=== PATIENT | female | born 1945 | race Caucasian/White ===

== ENCOUNTER 2017-09-28 18:55 | Inpatient (IN) | payer MEDICARE, OTHER ==
[2017-09-28 20:10] LABS: #Eosinphils 0.1 thou/uL (0.0-0.7); #Lymphocytes 1.7 thou/uL (1.20-3.40); #Monocytes 0.5 thou/uL (0.11-0.59); #Neutrophils 8.4 thou/uL (1.40-6.50); %Basophils 0.3 % (0.0-1.0); %Lymphocytes 15.8 % (21.0-51.0); %Monocytes 4.7 % (0.0-10.0); %Neutrophils 78.3 % (42.0-75.0); Hemoglobin 10.5 g/dL (12.0-16.0); Mean Corpuscular HGB CONC 32.2 g/dL (32.0-36.0); Mean Corpuscular Volume 90.1 fl (81.0-99.0); Mean Platelet Volume 10.2 fL (7.4-10.4); Platelet Count 228 thou/uL (130-400); RBC Distribution Width 14.4 % (11.5-14.5); Red Blood Cell (RBC) Count 3.62 mill/uL (4.20-5.40); White Blood Cell (WBC) Count 10.7 thou/uL (4.8-10.8)
[2017-09-28 20:15] LABS: INR-International Normal Ratio 1.1; PTT 26.9 SEC (22.9-36.1); Prothrombin Time 14.4 SEC (12.0-14.7)
[2017-09-28 20:29] LABS: ALT (SGPT) 10 U/L (8-55); AST (SGOT) 12 U/L (5-34); Albumin 3.7 g/dL (3.4-4.8); Alkaline Phosphatase 75 U/L (40-150); Anion Gap 12 mmol/L (10-20); BUN (Urea Nitrogen) 26 mg/dL (9.8-20.1); Bilirubin, Total 0.2 mg/dL (0.2-1.2); Calc. Creatinine Clearance 0 mL/min (70-130); Calcium 9.1 mg/dL (7.8-10.44); Carbon Dioxide 28 mmol/L (23-31); Chloride 103 mmol/L (98-107); Estimated GFR-MDRD 70; Globulin 3.2 g/dL (2.4-3.5); Glucose 167 mg/dL (80-115); Iron 32 ug/dL (50-170); Iron Binding Capacity, Total 361 mcg/dL (265-497); Potassium 3.9 mmol/L (3.5-5.1); Protein, Total 6.9 g/dL (6.0-8.3); Sodium 139 mmol/L (136-145)
--- NOTE | 2017-09-28 21:04 | CT ---
ABDOMEN AND PELVIC CT WITH CONTRAST 09/28/17 INDICATION: Lower GI bleed, rectal bleeding with dizziness and syncope. FINDINGS: No acute abnormalities of the lung bases are visualized. The solid abdominal organs reveal no acute a bnormalities. There is mild vascular calcification. No free air or ascites. The bowel is incompletely assessed without enteric contrast administration. There are colonic diverticula. There is linear hyp erdensity of the ventral abdominal wall indicating prior herniorrhaphy. Correlate with surgical histo ry. No acute osseous pathology. There is a small hiatal hernia. IMPRESSION: 1. Incomplete assessment of the bowel without enteric contrast. 2. Evidence of prior herniorrhaphy. 3. No free air or ascites. 4. Colonic diverticulosis. There is slight wall prominence of the underdistended sigmoid colon w ith a subtle degree of pericolonic haziness, incompletely assessed. Consider followup with endoscopic evaluation for more definitive evaluation. POS: [facility]
[2017-09-28] MEDS ORDERED: GoLYTELY 4,000 ml Bottle PO SCH ×2 (23:15→23:24)
[2017-09-28 23:23] LABS: Hemoglobin 9.8 g/dL (12.0-16.0)
[2017-09-28] MEDS ORDERED: Ondansetron ODT 4 MG TAB SL PRN (23:23)
[2017-09-28] MEDS ORDERED: Acetaminophen 325 MG TAB PO PRN ×2 (23:23→23:24)
[2017-09-28] MEDS ORDERED: Sodium Chloride 0.9% 1,000 ML IV SCH (23:23)
[2017-09-28] MEDS ORDERED: Ondansetron HCl/PF 4 MG/2 ML Vial IVP PRN (23:23)
[2017-09-28 23:45] VITALS: BMI 45.4
--- NOTE | 2017-09-29 00:04 | CON ---
DATE OF CONSULTATION: 09/28/2017 HISTORY OF PRESENT ILLNESS: Patient is a 72-year-old female who was in her normal state of health until 4:00 this morning, when she developed bright red rectal bleeding, over the last 18-hour s or so, has passed 4 large bloody bowel movements. She had a similar episode several months ago and was treated with transfusion and this spontaneously resolved. Approximately a year ago, she had GI evaluation for iron deficiency anemia. This consisted of an upper and lower endoscopy. Reportedly, the only abnormalities were diverticula. She is not absolutely sure where these diverticula were, bu t feels like mostly that they were in the sigmoid colon. She denies any abdominal pain, any vomiting . She has had some nausea when she has felt lightheaded. PAST MEDICAL HISTORY: Includes hypertension. PAST SURGICAL HISTORY: Includes herniorrhaphy, hysterectomy, and oophorectomy. ALLERGIES: No known allergies. SOCIAL HISTORY: She does not smoke or drink. FAMILY HISTORY: Negative for GI or liver disease. REVIEW OF SYSTEMS: Constitutional: No fever or chills. No weight loss. Eyes: No blurred vision, double vision. ENT: No sore throat or earaches. Cardiovascular: No chest pain or palpitations. P ulmonary: No shortness of breath, cough, or wheezing. Gastrointestinal: See above. : No hematu zack or dysuria. Musculoskeletal: No joint pain or muscle weakness. Skin: No rashes. Neurologic: No numbness or seizure activity. PHYSICAL EXAMINATION: VITAL SIGNS: Stable. She is afebrile. HEENT: Unremarkable. NECK: Supple. CHEST: Clear. CARDIOVASCULAR: Regular rate and rhythm. ABDOMEN: Soft, nontender, without organomegaly or masses. Bowel sounds are present. RECTAL: Deferred. EXTREMITIES: Normal. NEUROLOGIC: Nonfocal. LABORATORY DATA: Shows a hemoglobin 10.5, hematocrit 32.6. PT is 14.4 with an INR of 1.1. Chemistr ies show BUN of 26, creatinine 0.81, glucose 167. Iron 32, TIBC 361, ferritin 37. Abdominal and pel mahesh CT showed previous herniorrhaphy, colonic diverticulosis. There is some slight wall prominence o f the underdistended sigmoid colon with a subtle degree of pericolonic haziness. This is incompletel y assessed. ASSESSMENT: 1. Lower gastrointestinal bleed - suspect diverticular hemorrhage. 2. Anemia secondary to gastrointestinal blood loss. 3. Prior evaluation for iron deficiency anemia with no etiology found. 4. Colonic diverticulosis. RECOMMENDATIONS: 1. As urgent GI bleeding scan. 2. Serial H&H. 3. Colonoscopy in the a.m.
[2017-09-29] MEDS: D5 1/2 NS w/20 mEq KCL 1,000 ML IV SCH ×3 (00:17→14:51)
--- NOTE | 2017-09-29 03:37 | HP-2 ---
DATE OF SERVICE: 09/28/2017 TIME: 2200 hours. CODE STATUS: FULL CODE. PRIMARY CARE PHYSICIAN: Sonia castro. ATTENDING: Dr. Silas Daniels. RESIDENT: Dr. Mario Geiger. HISTORIAN: Patient CHIEF COMPLAINT: Rectal bleeding. HISTORY OF PRESENT ILLNESS: Sherie Lopez is a 72-year-old female with past medical history of di verticulosis and anemia, who presents to ED after 4 episodes of painless bright red bleeding per rect um that started today at 4:00 a.m. this morning. Since bleeding she has also progressively had worse maxwell dyspnea with exertion, fatigue and dizziness. The four episodes of bright red blood per rectum w ere painless and were more gross blood. There was no stool. She had a hemoglobin of 6.[address] going to the ED for worsening fatigue and shortness of breath with exertion and had an EGD and co lonoscopy done at that time, which found to have a hiatal hernia and diverticulosis, but no obvious b leeding. In May, she had a period of dyspnea, which resolved after getting 2 liters of normal sa line in the clinic. In July, she had a followup visit with a hemoglobin check and at that time, the hemoglobin was 12.5 leading up to today, she has been feeling well. No symptoms. There is no re cent illnesses and no major changes in bowel movements prior to today. In the ER, the patient receiv ed 1 liter of normal saline. PAST MEDICAL HISTORY: 1. Diverticulosis. 2. Anemia. PAST SURGICAL HISTORY: 1. Ovarian wedge resection. 2. Hysterectomy. 3. section x2. 4. Hernia repair with mesh. ALLERGIES: No known drug allergies. MEDICATIONS 1. Xyzal 5 mg p.o. daily. 2. Nexium 40 mg p.o. daily. 3. Ferrous sulfate 300 mg p.o. daily. 4. Triamterene/hydrochlorothiazide 50/25 mg p.o. daily. SOCIAL HISTORY: The patient denies tobacco, drugs, or alcohol use. REVIEW OF SYSTEMS: Twelve point review of systems including general, eyes, ENT, respiratory, CV, GI, , skin, musculoskeletal, neuro, and psych were reviewed and were negative, unless otherwise stated in the HPI. Otherwise included seasonal allergies and constipation. PHYSICAL EXAMINATION: VITAL SIGNS: Blood pressure 103/83, pulse 100, respiratory rate 24, temperature 98.2, pulse ox 92% o n room air. Current weight 120 kilograms. GENERAL: Patient is alert and oriented x4, no acute distress, obese, appropriately interactive. HEENT: Pupils are equal, round, reactive to light and accommodation. Extraocular muscles intact. C onjunctivae within normal limits. ENT: Tympanic membranes pearly penaloza without bulging or erythema. Nasal mucosa and oropharynx within normal limits. NECK: Supple, without lymphadenopathy or thyromegaly. CARDIOVASCULAR: Regular rate and rhythm. No murmurs or gallops. RESPIRATORY: Normal effort, no retractions. LUNGS: Clear to auscultation bilaterally. SKIN: Warm and dry without cyanosis or lesions. ABDOMEN: Soft, nontender. Bowel sounds normoactive. No masses or distention. EXTREMITIES: No clubbing, cyanosis, or pitting edema. MUSCULOSKELETAL: Structure and tone within normal limits. Full range of motion. NEUROLOGIC: No focal deficits. Sensation within normal limits. PSYCHIATRIC: Appropriate. LABORATORY DATA: White blood cell count 10.7, hemoglobin of 10.5, hematocrit 32.6, MCV of 90, platel ets 228. Sodium 139, potassium 3.9, chloride 103, carbon dioxide 28, BUN 26, creatinine 0.81, glucos e 167, calcium 9.1, total protein 6.9, albumin 3.7, total bilirubin 0.2, AST 12, ALT 10, alkaline gregory sphatase 75. Ferritin 37.73, TIBC is 361. Iron 32. FOBT positive. INR 1.1, PT 14.4, PTT 26.9. IMAGING: CT of the abdomen showed colonic diverticulosis, no free air slight wall prominence of unde r distended sigmoid colon with subtle degree of pericolonic haziness. ASSESSMENT AND PLAN: A 72-year-old female with past medical history of diverticulosis and anemia who presents after 4 episodes of bright red blood per rectum today. 1. Acute gastrointestinal bleed. Admit to medical, Dr. Penaloza with Gastroenterology consulted in the ED. FOBT positive. We will order nuclear medicine abdominal bleeding scan, type and cross. The pat ient start bowel prep for endoscopy in the morning and start IV fluids D5 half normal saline with 20 KCl at 160 mL an hour. 2. Anemia - normocytic. Supplement with iron. Would expect microcytic anemia with history of GI bl eeding. Check a vitamin B12 and folate. Iron studies were done in the ER. 3. Diet n.p.o. 4. Activity: Ambulate with assist. 5. Code status: FULL CODE. DISPOSITION AND LENGTH OF HOSPITAL STAY: 2 days. Symptomatic medication will be provided. History and physical exam as well as management discussed with Dr. Daniels.
[2017-09-29 05:59] LABS: Band 1 % (5-11); Eosinophils 1 % (0-10); Hemoglobin 8.5 g/dL (12.0-16.0); Lymphocytes 21 % (21-51); MDiff Complete? YES; Mean Corpuscular HGB CONC 32.6 g/dL (32.0-36.0); Mean Corpuscular Hemoglobin 29.4 pg (27.0-31.0); Mean Corpuscular Volume 90.1 fl (81.0-99.0); Mean Platelet Volume 10.2 fL (7.4-10.4); Monocytes 5 % (0-10); Neutrophil 72 % (42-75); Platelet Count 183 thou/uL (130-400); RBC Distribution Width 14.3 % (11.5-14.5)
--- NOTE | 2017-09-29 06:08 | PDOC.FM ---
- Subjective Subjective: Pt reports doing better this morning. Denies any acute events overnight. Reports no more acute bright red blood. Says she has noticed some older blood while she is drinking golytely. Pt denies any increased weakness. Denies any dizzines, lightheadness. Denies any SOB getting up and walking. Denies any chest pain or heart palpitations. Denies any nausea/vomiting. Denies any abdominal pain. Denies any fever or chills. Awaiting to go for colonoscopy at this time. - Objective MAR Reviewed: Yes Vital Signs & Weight: Vital Signs (12 hours) Temp Pulse Resp BP Pulse Ox 09/29/17 04:00 97.4 F L 95 16 110/57 L 95 09/29/17 00:43 98.1 F 95 20 95 09/28/17 23:42 98.1 F 95 20 147/84 H 94 L Weight Weight 120.2 kg Result Diagrams: 09/29/17 04:46 09/29/17 04:46 Radiology Reviewed by me: Yes Radiology: CT Ab/Pelvis: Incomplete assessment of the bowel w/o enteric contrast. Evidence of prior herniorrhaphy. No free air or ascites. Colonic diverticulosis. there is slight wall prominence of the underdistended sigmoid colon with a subtle degree of pericolonic haziness, incompletely assessed. Consider follow up w/ endoscopic evaluation GI bleed nuclear scan pending. <Marshal Sladana - Last Filed: 09/29/17 07:16> - Objective Vital Signs & Weight: Vital Signs (12 hours) Temp Pulse Resp BP Pulse Ox 09/29/17 07:46 97.8 F 96 16 137/74 95 09/29/17 04:00 97.4 F L 95 16 110/57 L 95 09/29/17 00:43 98.1 F 95 20 95 09/28/17 23:42 98.1 F 95 20 147/84 H 94 L Weight Weight 264 lb 15.93 oz Result Diagrams: 09/29/17 04:46 09/29/17 04:46 <Silas Daniels - Last Filed: 09/29/17 09:46> Phys Exam - Physical Examination Constitutional: NAD HEENT: PERRLA, moist MMs Neck: no nodes, supple, full ROM Respiratory: no wheezing, no rales, no rhonchi, clear to auscultation bilateral Cardiovascular: RRR, no significant murmur, no rub Gastrointestinal: soft, non-tender, no distention, positive bowel sounds Musculoskeletal: no edema, pulses present Neurological: non-focal, normal sensation, moves all 4 limbs Lymphatic: no nodes Psychiatric: normal affect Skin: no rash, normal turgor <Marshal Saldana - Last Filed: 09/29/17 07:16> Dx/Plan (1) Acute GI bleeding Code(s): K92.2 - GASTROINTESTINAL HEMORRHAGE, UNSPECIFIED Status: Acute (2) Diverticulosis Code(s): K57.90 - DVRTCLOS OF INTEST, PART UNSP, W/O PERF OR ABSCESS W/O BLEED Status: Acute (3) Normocytic anemia due to blood loss Code(s): D50.0 - IRON DEFICIENCY ANEMIA SECONDARY TO BLOOD LOSS (CHRONIC) Status: Acute - Plan Plan: Acute GI Bleed -FOBT +. Pt has had episodes of bleeds in the past. Reported 4 bright red blood stools. -CT scan shows diverticulosis and slight wall prominence in sigmoid colon -GI consulted- Dr. Penaloza- Will follow recs plan for colonoscopy today -GI bleed scan nuclear medicine pending. Normocytic Anemia 2/2 GI Bleed -Iron low. Will supplement -B12 on the low end of normal. May consider supplementing -Folate pending -Type and Crossmatched. Will continue to monitor H&H. will check after colonoscopy. Will transfuse if hgb below 7 or gets acutely symptomatic Diverticulosis -Seen on CT scan -possible source of GI bleed -Will await results of Colonoscopy. <Marshal Saldana - Last Filed: 09/29/17 07:16> Attending Addendum - Attending Addendum I personally evaluated the patient and discussed the management with Dr. Saldana I agree with the History, Examination, Assessment and Plan documented above. Pt doing better. Having no sx's of acute blood loss. Awaiting colonoscopy with GI this morning. Will trend H&H later today. Will replace if needed. <Silas Daniels - Last Filed: 09/29/17 09:46>
[2017-09-29 07:00] LABS: Anion Gap 11 mmol/L (10-20); BUN (Urea Nitrogen) 20 mg/dL (9.8-20.1); Calc. Creatinine Clearance 138 mL/min (70-130); Calcium 8.5 mg/dL (7.8-10.44); Carbon Dioxide 28 mmol/L (23-31); Chloride 104 mmol/L (98-107); Estimated GFR-MDRD 80; Glucose 177 mg/dL (80-115); Potassium 3.6 mmol/L (3.5-5.1); Sodium 139 mmol/L (136-145)
[2017-09-29] MEDS ORDERED: Ferrous Sulfate 325 MG TAB PO SCH ×2 (08:00→09:00)
--- NOTE | 2017-09-29 08:03 | NM ---
PRELIMINARY REPORT/[facility]/EMERGENCY AFTER HOURS PROCEDURE: EXAM: NM GI Bleeding Scan EXAM DATE/TIME: Exam ordered 09/29/2017 12:36 AM CLINICAL HISTORY: 72 years old, female; Signs and symptoms; Symptoms: Gi bleed; Additional info: Lower gi bleed, rectal bleeding with dizziness and syncope; Patient reports 4 episodes of bloody stool (bright red blood); Started at 0445 this morning and last bloody stool at 1800. TECHNIQUE: Frontal images of the abdomen and pelvis were obtained over 60 minutes following the intravenous admi nistration of [id number] red blood cells. COMPARISON: No relevant prior studies available. FINDINGS: Stomach and bowel: Unremarkable. No active GI bleeding. IMPRESSION: No active GI bleeding. Thank you for allowing us to participate in the care of your patient. Dictated and Authenticated by: Rudy Priest MD 09/29/2017 3:33 AM Central Time ([place] & [place]) FINAL REPORT RADIONUCLIDE GI BLEEDING STUDY: DATE: 09/29/17. TIME: Performed on an emergency basis at 0230 hours. HISTORY: Rectal bleeding. FINDINGS: Findings agree with the preliminary report from [facility]. There is no scintigraphic evidenc e of ongoing enteric hemorrhage. POS: [facility]
[2017-09-29] MEDS ORDERED: Prevnar 13-Val Conj/PF 0.5 ML SYRINGE IM ONE (09:00)
[2017-09-29] MEDS ORDERED: Non-Formulary Item 1 EACH (Ferrous Sulfate [Iron] 325 MG) PO SCH (09:00)
[2017-09-29] MEDS ORDERED: Promethazine HCl 25 MG/ML VIAL SLOW IVP PRN (10:33)
[2017-09-29] MEDS ORDERED: Ondansetron HCl/PF 4 MG/2 ML Vial IVP PRN (10:33)
[2017-09-29] MEDS ORDERED: Promethazine HCl 25 MG/ML VIAL IM PRN (10:33)
--- NOTE | 2017-09-29 11:21 | OP ---
PREOPERATIVE DIAGNOSIS: Lower gastrointestinal bleed. DESCRIPTION OF PROCEDURE: After informed consent was obtained, the patient was placed in the left la teral decubitus position. Anesthesia was administered per the Anesthesia Department. Forward-viewin g endoscope was inserted into the rectum after perianal inspection and rectal exam were normal. It w as passed to the cecum and to the terminal ileum with ease. The cecum, ileocecal valve, and terminal ileum were normal. The prep was excellent. In the cecum, ascending, transverse, descending, sigmoi d, there were multiple diverticula. In the ascending colon, a small 4 mm polyp was removed with cold snare polypectomy. Also, in the descending, a small 4 mm polyp was seen and removed with cold snare polypectomy. In the sigmoid colon, there was some mucosal edema and exudate around the diverticulum . It was not actively bleeding. Retroflexion in the rectum showed internal hemorrhoids. ASSESSMENT: 1. Diffuse diverticulosis coli. 2. Mild sigmoid diverticulitis. 3. Small ascending and descending colon polyps - status post cold snare polypectomy. 4. Internal hemorrhoids. 5. Otherwise normal ileal colonoscopy. RECOMMENDATIONS: 1. Short course of Cipro and Flagyl. 2. Daily Citrucel. 3. Await histopathology.
[2017-09-29 11:58] VITALS: BP 117/66; TEMP 98.1
[2017-09-29] MEDS ORDERED: metroNIDAZOLE 250 MG TAB PO SCH (13:00)
[2017-09-29] MEDS ORDERED: Propofol 200 MG/20 ML VIAL ONE (14:18)
[2017-09-29] MEDS ORDERED: Heparin 1,000 UNITS/ML VIAL ONE (16:25)
[2017-09-29] MEDS ORDERED: Ciprofloxacin 500 MG TAB PO SCH (20:00)
[2017-09-30 15:20] LABS: Folate,Hemolysate 352.3 ng/mL (Not Estab.); RBC Folate Test Component 1101 ng/mL (>498)
--- NOTE | 2017-09-30 15:35 | DIS-2 ---
DATE OF ADMISSION: 09/28/2017 DATE OF DISCHARGE: 09/29/2017 CONSULTATIONS: GI, Dr. Aydin Penaloza. PROCEDURES DONE: Colonoscopy which showed diffuse diverticulosis coli, mild sigmoid diverticulitis, and small ascending and descending colon polyps, status post cold snare polypectomy, pathology is pen ding, internal hemorrhoids, and otherwise normal ileocolonoscopy. IMAGING: Abdomen and pelvis CT which showed 1. Incomplete assessment of bowel without enteric contrast. 2. Evidence of prior herniorrhaphy. 3. No free air or ascites. 4. Colonic diverticulosis. There is a slight wall prominence of an underdistended sigmoid colon wit h a subtle degree of pericolonic haziness, incompletely assessed. Consider follow up with endoscopic evaluation for more definitive evaluation. Also get a GI bleed scan nuclear medicine which showed n o active gastrointestinal bleeding. PRIMARY DIAGNOSES: 1. Acute gastrointestinal bleed, likely secondary to diverticulosis. 2. Mild diverticulitis with diverticulosis. 3. Normocytic anemia secondary to gastrointestinal bleed. DISCHARGE MEDICATIONS: Included ciprofloxacin 500 mg b.i.d. for 7 days, ferrous sulfate 200 mg p.o. daily, methylcellulose 1000 mg p.o. daily, metronidazole 250 mg t.i.d. for a course of 7 days. Other medications include Nexium 1 cap p.o. daily, hydrochlorothiazide 12.5 mg daily, Xyzal 1 tab daily. No discontinued medications. HISTORY OF PRESENT ILLNESS AND BRIEF HOSPITAL COURSE: This is a 72-year-old female with a past medic al history of diverticulosis and anemia, who came to the ED after 4 episodes of painless bright red b leeding per rectum that started at 4:00 a.m. prior to admission. She reported having increasing shor tness of breath, fatigue, and dizziness. She is worried that there is bright red blood per rectum an d no stool. When she came in, she was found to have a hemoglobin of 10.5. We trend it a few hours l ater to be 9.8 and then, the next day on 09/29/2017, it would be 8.5. The fecal occult blood test wa s positive for blood. At this time, we consulted GI, Dr. Penaloza who recommended that she get a GI nucl ear scan which did end up showing no bleed at that time and then recommended colonoscopy on the next day. Overnight, she continued to improve. She took her GoLYTELY treatment, said she had some old cl ots, some old-looking blood but no acute bleed anymore. Her symptoms of shortness of breath had cont inued to improve and dizziness. She then got the colonoscopy on 09/29/2017, results seen above and a t this time, she was stable, had close follow up outpatient and was ready for discharge. At this mumtaz e, she was diagnosed with mild diverticulosis and sent home with antibiotics. If she becomes symptom atic, she would follow up outpatient to get her labs drawn. DISPOSITION: Stable. DISCHARGE INSTRUCTIONS: 1. Location: Home. 2. Diet: High-fiber diet. 3. Activity: Activity as tolerated. 4. Follow up: Will need to follow up with her primary care physician within 14 days for a hospital followup and we will also be contacting her with the surgical results of the colonoscopy.
--- NOTE | 2017-10-05 17:05 | EKG ---
Test Reason : Blood Pressure : / mmHG Vent. Rate : 110 BPM Atrial Rate : 110 BPM P-R Int : 148 ms QRS Dur : 094 ms QT Int : 346 ms P-R-T Axes : 005 -74 -04 degrees QTc Int : 468 ms Sinus tachycardia Left anterior fascicular block Abnormal ECG Confirmed by KRISTIAN HURST D.O. ([id number]), editorial manager DIDIER SALGADO ([id number]) on 10/05/2017 5:04:22 PM Referred By: Confirmed By:KRISTIAN HURST D.O.
== END 2017-09-29 14:54 | disposition home or self-care (01) | DRG 378 ==
LOC: ERS 18:55 → T4-B 22:00
PROVIDERS: ADMIT Family Medicine; ATTEND Family Medicine
PROC: 0DBK8ZZ Excision of Ascending Colon, Via Natural or Artificial Opening Endoscopic (ICD-10-PCS; principal; 2017-09-29)
PROC: 0DBM8ZZ Excision of Descending Colon, Via Natural or Artificial Opening Endoscopic (ICD-10-PCS; 2017-09-29)
DX: K57.31 Diverticulosis of large intestine without perforation or abscess with bleeding (principal); Z68.42 Body mass index [BMI] 45.0-49.9, adult; D62 Acute posthemorrhagic anemia; K57.32 Diverticulitis of large intestine without perforation or abscess without bleeding; K64.8 Other hemorrhoids; I10 Essential (primary) hypertension; K21.9 Gastro-esophageal reflux disease without esophagitis; E66.9 Obesity, unspecified; D12.2 Benign neoplasm of ascending colon; D12.4 Benign neoplasm of descending colon
CPT/HCPCS: 36415; 74177; 78278; 80048; 80053; 82274; 82607; 82728; 82747; 83540; 83550; 85007; 85025; 85027; 85610; 85730; 86850; 86900; 86901; 88305; 90471; 90670; 93005; 96360; A9604; G0009; J1644; J2704